=== PATIENT | female | born 1990 | race Native Hawaiian/Other Pacific Islander ===

== ENCOUNTER 2022-04-20 09:27 | Outpatient (CLI) | payer OTHER, SELFPAY ==
[2022-04-20 11:00] LABS: Cholesterol* 198 mg/dL (90-199); Glucose* 96 mg/dL (60-115); Triglycerides* 97 mg/dL (40-149)
[2022-04-20 11:01] LABS: HDL Cholesterol* 54 mg/dL (>=50); LDL Cholesterol Calculated 125 mg/dL (<100)
== END 2022-04-20 09:28 | disposition home or self-care (01) ==
PROVIDERS: PCP Family Medicine; Visit Provider Family Medicine
DX: Z01.419 Encounter for gynecological examination (general) (routine) without abnormal findings (principal); Z13.1 Encounter for screening for diabetes mellitus; Z13.6 Encounter for screening for cardiovascular disorders
CPT/HCPCS: 80061; 82947

== ENCOUNTER 2022-09-04 08:45 | Outpatient (CLI) | payer OTHER, SELFPAY ==
--- NOTE | 2022-09-04 08:45 | CRLHL7_ITS ---
For Patients: As a result of the Cures Act, medical imaging exams and procedure reports are released immediately into your electronic medical record. You may view this report before your referring provider. If you have questions, please contact your health care provider. INDICATION: First trimester scan, establish dates. COMPARISON: None. TECHNIQUE: Real-time garay-scale imaging of the pelvis was performed. FINDINGS: Sonographic imaging demonstrates a single living intrauterine gestation. The embryo demonstrates a regular cardiac rate measuring 176 beats per minute. The embryo`s crown-rump length measurement of 2.0 cm corresponds to a gestational age of 8 weeks 4 days with a sonographic due date of 04/12/2023. There is a normal-appearing yolk sac. There are no gross abnormalities noted within the embryo at this early state of development. The gestational sac has a normal appearance. There is no evidence of a perigestational hemorrhage. The amount of fluid within the sac appears appropriate for gestational age. The cervix is closed. The myometrium appears normal. The ovaries are of normal size. Corpus luteal cyst on the left. There are no suspicious fluid collections noted in the cul-de-sac. IMPRESSION: Normal first trimester OB ultrasound exam. Gestational age calculated at 8 weeks 4 days with a sonographic due date of 04/12/2023. Dictated by Abdirizak Robins MD @ 09/04/2022 9:57:24 AM (Electronically Signed)
--- OUTSIDE RECORDS SUMMARY | 2022-09-04 09:03 | XMS_ITS | Clinical Summary ---
:1990 Author Organization [facility] [place] [place] [address] Care Team Providers Name Role Phone Pcp, No Primary Care Provider Unavailable Allergies No known active allergies Medications Medication Sig Dispensed Refills Start Date End Date Status desogestrel-ethinyl Take 1 tablet by 1 Package 0 11/02/2015 Active estradiol, 0.15-0.02 mouth once daily. mg, (AZURETTE, 28,) tablet levonorgestrel-ethinyl Take 1 tablet by 0 06/24/2018 Active estrad, 0.1mg-20mcg, mouth once daily. (ALESSE-28) 0.1-20 mg-mcg tablet levonorgestrel-ethinyl Take 1 tablet by 3 Package 3 06/24/2018 Active estrad, 0.1mg-20mcg, mouth once daily. (ALESSE-28) 0.1-20 mg-mcg tabletIndications: Annual physical exam Active Problems No known active problems Immunizations Name Administration Dates Next Due Tdap 06/24/2018 Family History Medical History Relation Name Comments Good Health Brother Other Father arthritis Good Health Mother Good Health Sister Relation Name Status Comments Brother Father Mother Sister Social History Tobacco Use Types Packs/Day Years Used Date Smoking Tobacco: Never Smokeless Tobacco: Never Tobacco Cessation: Counseling Given: Yes Alcohol Use Standard Drinks/Week Comments Yes 0 (1 standard drink = 0.6 oz pure alcoho l) Sex Assigned at Date Recorded Not on file Obstetrics History Last Filed Vital Signs Vital Sign Reading Time Taken Comments Blood Pressure 112/80 04/28/2018 4:39 PM CDT Pulse 90 06/24/2018 4:09 PM CDT Temperature 37 ??C (98.6 ??F) 04/28/2018 4:39 PM CDT Respiratory Rate - - Oxygen Saturation 100% 06/24/2018 4:09 PM CDT Inhaled Oxygen Concentration - - Weight 56.9 kg (125 lb 8 oz) 06/24/2018 4:09 PM CDT Height 152.4 cm (5') 06/24/2018 4:09 PM CDT Body Mass Index 24.51 06/24/2018 4:09 PM CDT Plan of Treatment Health Maintenance Due Date Last Done Comments COVID-19 vaccine series (#1) 1990 HIV for age 15-65 2005 Hepatitis C screening for age 18-79 2008 BMI (ht and wt on same day) for age 1006/24/2019 06/24/2018, 11/02/2015 18+ Depression screening for age 12+ 06/24/2019 06/24/2018 Influenza for age 9-49 05/24/2022 Pap test for age 21-65 04/25/2025 04/25/2022, 04/25/2022, 06/24/2018 Tetanus booster 06/24/2028 06/24/2018 Tdap Completed 06/24/2018 Results Not on filefrom Last 3 Months Insurance Payer Benefit Plan / Subscriber ID Effective Dates Phone Addre ss Type Group [employer] [id number] 2017-Present [address] [place] [address] Care Teams 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
== END 2022-09-04 08:46 | disposition home or self-care (01) ==
LOC: US 08:46
PROVIDERS: PCP Family Medicine; Visit Provider Advanced Practice Midwife
DX: Z34.91 Encounter for supervision of normal pregnancy, unspecified, first trimester (principal); Z3A.08 8 weeks gestation of pregnancy
CPT/HCPCS: 76817

== ENCOUNTER 2022-09-04 09:45 | Outpatient (CLI) | payer OTHER, SELFPAY ==
--- OUTSIDE RECORDS SUMMARY | 2022-09-04 09:50 | XMS_ITS | Clinical Summary ---
:1990 Author Organization [facility] [place] [address] Care Team Providers Name Role Phone Pcp, [...] Addre ss Type Group [employer] [id number] 2017-Present [address] [place] [address] Care Teams Hadoop Infrastructure Architect Relationship Specialty Start Date End Date Pcp, No PCP - General 06/09/18 .
[2022-09-04 12:12] LABS: Hepatitis B Surface Antigen* Negative (Negative)
[2022-09-04 12:17] LABS: HIV 1/2/P24 Combo Screen* Negative (Negative)
[2022-09-04 12:29] LABS: Hepatitis C Virus Antibody* Negative (Negative)
[2022-09-06 03:56] LABS: Varicella-Zoster Virus Ab, IgG 239.7 IV
[2022-09-06 04:03] LABS: Rubella Antibody IgG 17.5 IU/mL
[2022-09-06 04:23] LABS: Rapid Plasma Reagin (RPR) Non Reactive (Non Reactive)
== END 2022-09-04 09:46 | disposition home or self-care (01) ==
PROVIDERS: PCP Family Medicine; Visit Provider Advanced Practice Midwife
DX: Z34.91 Encounter for supervision of normal pregnancy, unspecified, first trimester (principal); Z3A.08 8 weeks gestation of pregnancy
CPT/HCPCS: 84443; 86592; 86703; 86762; 86787; 86803; 86850; 86900; 86901; 87086; 87340

== ENCOUNTER 2022-11-26 08:10 | Outpatient (CLI) | payer OTHER, SELFPAY ==
--- NOTE | 2022-11-26 08:15 | CRLHL7_ITS ---
For Patients: As a result of the Century Cures Act, medical imaging exams and procedure reports are released immediately into your electronic medical record. You may view this report before your referring provider. If you have questions, please contact your health care provider. INDICATION: Evaluate anatomy. COMPARISON: 09/04/2022 TECHNIQUE: Real time garay scale imaging of the fetus was performed as well as color Doppler analysis of the umbilical vessels. FINDINGS: Sonographic imaging demonstrates a single living intrauterine gestation. Fetus demonstrates a regular cardiac rate of 144 beats per minute. Fetus has a longitudinal vertex position. The placenta lies posteriorly without evidence of placenta previa. The edge of the placenta is located 4.2 cm from the internal cervical os. Amniotic fluid volume appears normal. Single deepest vertical pocket: 4.5 cm. The cervix is closed and measures 2.8 cm in length. The composite ultrasound gestational age is calculated at 21 weeks 2 days with an estimated sonographic due date of 04/06/2023. The estimated weight is 415 grams which lies at the 96th %. The following biometric measurements were obtained: Biparietal diameter: 5.1 cm/21 weeks 4 days 93rd% Head circumference: 18.7 cm/21 weeks 0 days 80th% Abdominal circumference: 17.0 cm/22 weeks 0 days 93rd% Femur length: 3.4 cm/20 weeks 4 days 60th% The HC/AC ratio measures: 1.10 range (1.06-1.24) On anatomic survey, there is a normal appearance of the cerebral ventricles, cavum septi pellucidi, cisterna magna and cerebellum. The nose, lips, and facial profile appear normal. The cervical, thoracic and lumbar spine are well visualized and appear normal. There is a normal four-chamber heart view and the left and right ventricular outflow tracts appear normal. The diaphragm and stomach appear normal. The kidneys and bladder also appear normal. There is a normal three-vessel cord and cord insertion site. The four extremities appear normal. IMPRESSION: Sonographic gestational age 21 weeks 2 days and sonographic due date 04/06/2023. Sonographic age 8 days ahead of the clinical age. Estimated weight 96th percentile. Abdominal circumference 93rd percentile. No intrinsic abnormalities noted on anatomic survey. Dictated by Abdirizak Robins MD @ 11/26/2022 11:04:15 AM (Electronically Signed)
== END 2022-11-26 08:11 | disposition home or self-care (01) ==
PROVIDERS: PCP Family Medicine; Visit Provider Obstetrics & Gynecology
DX: Z34.92 Encounter for supervision of normal pregnancy, unspecified, second trimester (principal); Z3A.21 21 weeks gestation of pregnancy
CPT/HCPCS: 76805

== ENCOUNTER 2023-01-23 09:09 | Outpatient (CLI) | payer OTHER, SELFPAY | END 2023-01-23 09:10 | disposition home or self-care (01) | LOC: NFLDREF 01-25 09:08 | PROVIDERS: PCP Family Medicine; Referring Provider Family Medicine; Visit Provider Obstetrics & Gynecology | DX: Z36.89 Encounter for other specified antenatal screening (principal); Z11.3 Encounter for screening for infections with a predominantly sexual mode of transmission | CPT/HCPCS: 86592 ==

== ENCOUNTER 2023-03-18 08:50 | Outpatient (CLI) | payer OTHER, SELFPAY | END 2023-03-18 08:51 | disposition home or self-care (01) | PROVIDERS: PCP Family Medicine; Referring Provider Family Medicine; Visit Provider Obstetrics & Gynecology | DX: Z34.93 Encounter for supervision of normal pregnancy, unspecified, third trimester (principal); Z3A.36 36 weeks gestation of pregnancy | CPT/HCPCS: 87081; 87653 ==

== ENCOUNTER 2023-04-09 05:17 | Inpatient (IN) | payer OTHER, SELFPAY ==
[2023-04-09] VITALS (32 sets, daily range): BP systolic 93–130; BP diastolic 49–74; PULSE 67–97; RESP 16–20; TEMP 36.5–36.9; O2SAT 97–100; BMI 29.8
[2023-04-09] MEDS: LACTATED RINGERS 1000 ML 1,000 ML 100 ML IV (05:45)
[2023-04-09] MEDS: SODIUM CHLORIDE 0.9 % (FLUSH) 10 ML SYRINGE IVF ×2 (05:57→13:59)
[2023-04-09] MEDS: CEFAZOLIN 2 GM INJ IVP (07:25)
[2023-04-09 07:45] LABS: Hemoglobin* 11.3 gm/dL (12.0-16.0)
--- NOTE | 2023-04-09 07:45 | W.ANESCHARGE ---
Anesthesia Charges Start Date/Time Anesthesia Start Date: 04/09/23 Anesthesia Start Time: 07:17 Stop Date/Time Anesthesia Stop Date: 04/09/23 Anesthesia Stop Time: 08:53
--- NOTE | 2023-04-09 08:01 | SUR.OPER ---
Surgeon decline offer to send placenta to pathology.
[2023-04-09] MEDS: KETOROLAC 30 MG/ML inj IM (08:11)
--- NOTE | 2023-04-09 08:15 | W.ANESCHARGE ---
Anesthesia Charges Start Date/Time Anesthesia Start Date: 04/09/23 Anesthesia Start Time: 07:17 Stop Date/Time Anesthesia Stop Date: 04/09/23
[2023-04-09] MEDS: LACTATED RINGERS 1000 ML 1,000 ML 125 ML IV (08:35)
--- NOTE | 2023-04-09 08:41 | P.OBPRC_ITS ---
Procedure Date of procedure: 04/09/23 Pre-op diagnosis: 39 weeks gestation, h/o x1 Post-op diagnosis: same Will [facility] bill your pro fee for this procedure?: Yes Blood Loss Measurement Type: QBL Bakri Used: No Surgeon: Aminata Anesthesia type: Spinal Findings: Live-born female , Apgars 9 and 9, cephalic presentation, normal uterus, tubes and ovaries. Omental adhesions to anterior peritoneum. Procedure Description: PREOPERATIVE DIAGNOSES: 1. Intrauterine at 39 2/7 weeks' gestation. 2. History of prior low transverse section , desiring repeat. POSTOPERATIVE DIAGNOSES: 1. Intrauterine at 39 2/7 weeks' gestation. 2. History of prior low transverse section , desiring repeat. NAME OF PROCEDURE: Repeat low transverse section. Lysis of adhesions. SURGEON: Aminata. ANESTHESIA: Spinal. COMPLICATIONS: None. ESTIMATED BLOOD LOSS: 405 mL. DRAINS: Hu to gravity. FINDINGS: Live-born female infant, cephalic presentation, Apgars 9 and 9 at 1 and 5 minutes respectively. weight 8 pounds 11 ounces. Normal appearing uterus, tubes, and ovaries. Adhesions between the omentum and anterior peritoneum. Moderate adhesions between the bladder and lower uterine segment. PROCEDURE: After obtaining informed consent, the patient was taken to the operating room where spinal anesthesia was obtained and found to be adequate. She was prepared and draped in the normal sterile fashion in the dorsal supine position with a leftward tilt. A Pfannenstiel skin incision was made with a scalpel along the line of the patient's previous Pfannenstiel scar. This incision was carried down to the underlying layer of fascia with the Bovie. The fascia was incised in the midline and the incision extended laterally. The superior and inferior aspects of the fascial incision were grasped with Alexy clamps, elevated and the underlying rectus muscles dissected off sharply and with electrocautery. This dissection took an increased amount of time given the dense adhesions. The rectus muscles were then in the midline. The adhesions between the bladder and lower uterine segment were taken down sharply with Metzenbaum scissors. The Denilson O retractor was then placed into the incision. The lower uterine segment was then incised in a transverse fashion with the scalpel. Upon entry into the uterus, clear amniotic fluid was noted. The uterine incision was extended laterally with blunt finger fractionation. The 's head was delivered atraumatically, followed by the remainder of the 's body. The nose and mouth were suctioned with the bulb suction. The c ord was doubly clamped and cut, and the was handed off the field for evaluation. The placenta was delivered spontaneously with umbilical cord traction and fundal massage. The uterus was cleared of all clots and debris. The uterine incision was reapproximated in a running locking fashion with a 0 chromic suture. A 2nd layer of the same suture was used to imbricate in horizontal fashion. The gutters were irrigated and suctioned. All instruments and retractors were removed. The omental adhesions were isolated, doubly clamped with Alison clamps, and suture ligated with 2-9 chromic. The anterior peritoneum was reapproximated in a running fashion with a 3-0 Vicryl suture. The subfascial tissues were carefully inspected and hemostasis assured. The fascia was reapproximated in a running fashion with a looped 0 Maxon suture. The subcutaneous tissues were copiously irrigated. Hemostasis was assured. The skin was closed in a subcuticular fashion with 4-0 Vicryl. Exofin surgical glue and dressing were applied. The patient tolerated the procedure well. Sponge, lap, needle, and instrument counts were reported as correct x2. The patient was taken to the recovery room, awake, and in stable condition. She did receive 2 grams of IV Ancef preoperatively. Complications: None. Condition: stable Disposition: floor
--- NOTE | 2023-04-09 09:15 | W.PM.NB ---
Nerve Block Nerve Block Time Seen by Provider: 08:44 Date Seen: 04/09/23 Type of block requested by surgeon for post-operative analgesia: TAP Side: bilateral Time out performed: Yes Verification of patient name: Yes Verification of date of : Yes Site marking: site marked Name of person performing procedure: Jose Continuous monitoring Was continuous monitoring of O2 sat, B/P, environmental monitoring technician, recorded every 15 minutes?: Yes Procedure Checklist: sterile prep, needles and gloves Ultrasound guided. Images saved: Yes Medications given in 5ml increments after negative aspiration: Marcaine %: 0.25 mL: 30 Needle gauge: 20 and Exparel mL: 10 Patient tolerated procedure well: Yes Additional comments: Needle noted adjacent to nerve Block Charges Block Charge (with Pro Fee): TAP Bilateral Use of Ultrasound Machine for Block: Yes- US Guidance/pain block
[2023-04-09] MEDS: ACETAMINOPHEN 500 MG TABLET 1000 MG PO ×2 (12:33→18:26)
[2023-04-09] MEDS: KETOROLAC 30 MG/ML inj IVP ×2 (13:58→19:54)
[2023-04-10] VITALS (8 sets, daily range): BP systolic 99–112; BP diastolic 59–72; PULSE 71–72; RESP 16–18; TEMP 36.6–36.9; O2SAT 98–100
[2023-04-10] MEDS: KETOROLAC 30 MG/ML inj IVP ×2 (03:57→10:17)
[2023-04-10 06:23] LABS: Hemoglobin* 10.7 gm/dL (12.0-16.0)
--- NOTE | 2023-04-10 07:31 | PM.OBDSVD1 ---
DS: Providers Provider Date Seen: 04/10/23 Date of admission: 04/09/23 05:17 Primary care physician: Lali East MD Admitting Clinician: Joanna Coates MD Attending Physician on discharge: Joanna Coates MD Date of Discharge: 04/10/23 DS: Diagnosis Discharge Diagnosis (1) care following delivery: Status: Acute (2) Lactating mother: Status: Acute Exam Narrative: Exam Narrative: GENERAL APPEARANCE:? normal affect, alert, no distress? MOOD:? appropriate? CHEST:? clear to auscultation and percussion? HEART:? regular rate and rhythm? ABDOMEN:? soft, non-tender the uterine fundus is 2 cm Below Umbilicus, Midline and is appropriate for the stage of recovery. Incision is covered with a dressing that is clean, dry and intact. Dressing to be removed this morning. EXTREMITIES:? normal and no edema? Patient has no complaints? No active bleeding?? Doing well? She is requesting discharge home.? Const: Vital Signs, click to edit/add: Vital Signs - 24 hr 04/09/23 08:53 04/09/23 08:58 04/09/23 09:04 Temperature 97.7 F Pulse Rate 71 67 68 Pulse Rate [Pulse Oximeter] Respiratory Rate 18 18 18 Blood Pressure 98/64 98/66 93/63 Blood Pressure [Ri ght Arm] Pulse Oximetry 97 97 100 Oxygen Delivery Me thod Room Air Room Air Room Air 04/09/23 09:09 04/09/23 09:14 04/09/23 09:18 Temperature Pulse Rate 72 73 77 Pulse Rate [Pulse Oximeter] Respiratory Rate 18 18 18 Blood Pressure 98/69 98/61 110/63 Blood Pressure [Ri ght Arm] Pulse Oximetry 98 100 97 Oxygen Delivery Me thod Room Air Room Air Room Air 04/09/23 09:20 04/09/23 09:35 04/09/23 09:47 Temperature 98.4 F Pulse Rate Pulse Rate [Pulse Oximeter] 80 75 Respiratory Rate 16 16 Blood Pressure Blood Pressure [Ri ght Arm] 103/49 L 104/68 Pulse Oximetry 100 Oxygen Delivery Me thod 04/09/23 09:50 04/09/23 10:05 04/09/23 10:20 Temperature Pulse Rate Pulse Rate [Pulse Oximeter] 78 83 80 Respiratory Rate 16 16 16 Blood Pressure Blood Pressure [Ri ght Arm] 106/69 99/64 102/66 Pulse Oximetry 100 100 99 Oxygen Delivery Ma thod 04/09/23 10:35 04/09/23 10:47 04/09/23 10:50 Temperature Pulse Rate Pulse Rate [Pulse Oximeter] 77 88 Respiratory Rate 16 16 18 Blood Pressure Blood Pressure [Ri ght Arm] 99/65 108/70 Pulse Oximetry 99 100 Oxygen Delivery Ma thod 04/09/23 11:05 04/09/23 11:47 04/09/23 12:30 Temperature 98.2 F 98.1 F Pulse Rate Pulse Rate [Pulse Oximeter] 78 83 Respiratory Rate 16 16 18 Blood Pressure Blood Pressure [Ri ght Arm] 98/63 100/62 Pulse Oximetry 100 [facility] 04/09/23 12:45 04/09/23 13:47 04/09/23 14:47 Temperature Pulse Rate Pulse Rate [Pulse Oximeter] Respiratory Rate 16 16 16 Blood Pressure Blood Pressure [Ri ght Arm] Pulse Oximetry [facility] 04/09/23 15:47 04/09/23 16:30 04/09/23 16:47 Temperature 97.8 F Pulse Rate Pulse Rate [Pulse Oximeter] 75 Respiratory Rate 16 16 18 Blood Pressure Blood Pressure [Ri ght Arm] 105/70 Pulse Oximetry 100 Oxygen Delivery [facility] Room Air 04/09/23 17:47 04/09/23 19:29 04/09/23 19:29 Temperature 98.2 F Pulse Rate Pulse Rate [Pulse Oximeter] 80 Respiratory Rate 16 18 16 Blood Pressure Blood Pressure [Ri ght Arm] 96/61 Pulse Oximetry 98 [facility] 04/09/23 19:56 04/09/23 20:47 04/09/23 21:46 Temperature Pulse Rate Pulse Rate [Pulse Oximeter] Respiratory Rate 18 20 18 Blood Pressure Blood Pressure [Ri ght Arm] Pulse Oximetry [facility] 04/09/23 22:47 04/09/23 23:15 04/10/23 00:31 Temperature Pulse Rate Pulse Rate [Pulse Oximeter] Respiratory Rate 18 18 18 Blood Pressure Blood Pressure [Ri ght Arm] Pulse Oximetry [facility] 04/10/23 00:31 04/10/23 01:47 04/10/23 02:47 Temperature 97.8 F Pulse Rate Pulse Rate [Pulse Oximeter] 71 Respiratory Rate 18 18 18 Blood Pressure Blood Pressure [Ri ght Arm] 99/64 Pulse Oximetry 100 Oxygen Delivery Me thod Room Air 04/10/23 03:47 04/10/23 04:19 04/10/23 04:47 Temperature 98.2 F Pulse Rate Pulse Rate [Pulse Oximeter] 72 Respiratory Rate 18 16 16 Blood Pressure Blood Pressure [Ri ght Arm] 112/72 Pulse Oximetry 98 Oxygen Delivery Me thod Room Air 04/10/23 05:36 Temperature Pulse Rate Pulse Rate [Pulse Oximeter] Respiratory Rate 16 Blood Pressure Blood Pressure [Ri ght Arm] Pulse Oximetry Oxygen Delivery Me thod OB - DS: Summary Hospital Course Hospital Course: Patient is a 32year old, G 2 now P 2? admitted on 04/09/23 at 39 Weeks, 2 Days gestation for scheduled repeat section.? She had an uncomplicated delivery.? She delivered a viable female infant.? She is breast feeding and reports things are well.? the patient has done well.? Her pain is well controlled with current medications.? She has no new complaints.? Vitals have been stable. She has remained afebrile. She is voiding without difficulty. She is passing gas and has not had a bowel movement. She is ambulating and denies any dizziness. She is planning IUD for control.?She had previously discussed a discharge this evening with Dr. Coates yesterday if there were no complications. She would like to do this and plans to stay until this evening. She is doing well and there have not been any complications.?? Peripartum Data Infant delivery method: Repeat Section Procedures: Procedures Operation Date: 04/09/23 07:15 Actual Procedure Side Surgeon p Repeat Section Joanna Coates MD complications: none Gender: Female Discharge Plan: Home Status at Discharge Functional status at discharge: independent ambulation Overall status at discharge: patient is progressing back to baseline Time Spent with Patient Time attestation: Total time spent providing and/or coordinating discharge services: Discharge Plan Discharge Disposition: Home, Self-Care Date of Admission: 04/09/23 05:17 Attending Provider on Discharge: Giselle Babin Primary Care Provider: Lali East Condition: Stable Anticipated Discharge Date/Time: 04/10/23 20:00 Discharge Medications: New docusate sodium 100 mg Capsule 100 mg PO DAILY Qty: 90 0RF Rx Instructions: Take 1-2 tablets daily as needed for constipation. ibuprofen 600 mg Tablet 600 mg PO Q6H PRN (Reason: Pain) Qty: 60 0RF oxycodone 5 mg Tablet 5 - 10 mg PO Q4H PRN (Reason: Pain) Qty: 5 0RF Continued with DHA-Folic Acid 400-32.5 mcg-mg tablet,chewable 1 tab PO DAILY Discontinued ferrous sulfate [Feosol] 325 mg (65 mg iron) tablet 325 mg PO Q OTHER DAY Discharge Orders: Discharge Order (Routine); Ordered 04/10/23 Ordered By: Giselle Babin Additional Instructions: Discharge instructions were reviewed with the patient including signs and symptoms of infection and home going medications? ?? Activity restrictions:? Lifting Restrictions: 20 pounds for 6 weeks? No high-impact or core exercises for 6 weeks.?? No not submerge incision under water X 2 weeks?? Nothing vaginally for 6 weeks: no tampons or intercourse? Do not drive while taking narcotic pain medication(s)? Off Work or School for 8 weeks? ?? Symptoms to report to doctor:? -Bleeding that saturates more than one pad per hour? -Passing clots larger than the size of a golf ball? -Pain not relieved by prescribed medication? -Fever above 100.4 degrees Fahrenheit? -A foul vaginal odor? -Difficulty in emotions, mood and functions? -Thoughts of hurting yourself and/or ? -Painful, reddened area in your breast? -Any drainage, redness or tenderness in your IV/epidural site? -Severe headache that doesn't improve after taking medications? -Changes in vision, including temporary loss of vision, blurred vision, and/or light sensitivity? -Upper abdominal pain (usually under ribs on the right side)? -Decrease in urination or painful, frequent urinating? -Chest pain? -Shortness of breath? -Tenderness or pain with redness and/swelling in the calf(s) of your leg? Follow up visits:?? 1. 1 week visit:? incision check.? 2. 2-week visit: discuss feeding/care concerns, review control options and screen for anxiety/depression.? 3. 6-week visit for an annual exam.? ?? consultation services are available to all mothers and babies for the first year after delivery.? To make an appointment, please call [phone].? Follow Up Appointments: [facility] [Provider Group] Lali East MD [Primary Care Provider] - Forms: MyHealth Info Instructions
[2023-04-10] MEDS: ACETAMINOPHEN 500 MG TABLET 1000 MG PO (07:48)
[2023-04-10] MEDS: DOCUSATE SODIUM 100 MG CAPSULE PO (09:08)
== END 2023-04-10 12:30 | disposition home or self-care (01) | DRG 788 ==
PROVIDERS: Admitting Provider Obstetrics & Gynecology; PCP Family Medicine; Visit Provider Obstetrics & Gynecology
PROC: 10D00Z1 Extraction of Products of Conception, Low, Open Approach (ICD-10-PCS; CPT 59514; principal; 2023-04-09 07:15)
DX: O34.211 Maternal care for low transverse scar from previous cesarean delivery (principal); O99.892 Other specified diseases and conditions complicating childbirth; N73.6 Female pelvic peritoneal adhesions (postinfective); Z3A.39 39 weeks gestation of pregnancy; Z37.0 Single live birth; G89.18 Other acute postprocedural pain
CPT/HCPCS: 01961; 36415; 64488; 76942; 85018; 86850; 86900; 86901; A9270; C9290; J0665; J0690; J1885; J2274; J2371; J2405; J2590; J3010; J7120